=== PATIENT | female | born 1970 | race African-American/Black ===

== ENCOUNTER 2020-04-29 05:58 | Inpatient (IN) | payer OTHER ==
[2020-04-29] MEDS ORDERED: Dextrose 50% Abboject 50 ML SYRINGE ONE ×2 (06:04→06:35)
[2020-04-29] MEDS ORDERED: Vancomycin 1 GM/200 ML BAG ONE (07:21)
[2020-04-29 07:53] LABS: Anion Gap 16 mmol/L (10-20); BUN (Urea Nitrogen) 15 mg/dL (7.0-18.7); Calc. Creatinine Clearance 0 mL/min (70-130); Calcium 6.4 mg/dL (7.8-10.44); Carbon Dioxide 18 mmol/L (22-29); Chloride 107 mmol/L (98-107); Estimated GFR-MDRD 56; Potassium 3.2 mmol/L (3.5-5.1); Sodium 138 mmol/L (136-145)
[2020-04-29] MEDS ORDERED: Ondansetron ODT 4 MG TAB PO PRN (08:01)
[2020-04-29] MEDS ORDERED: HumaLOG 300 UNITS/3 ML VIAL SC PRN (08:04)
[2020-04-29] MEDS ORDERED: Dextrose 5% in Water 1,000 ML IV PRN (08:04)
[2020-04-29] MEDS ORDERED: Dextrose 50% Abboject 50 ML SYRINGE SLOW IVP PRN (08:04)
[2020-04-29] MEDS ORDERED: Lactated Ringer's 1,000 ML IV SCH ×2 (08:15→12:00)
[2020-04-29] MEDS ORDERED: Dextrose 5%-Lactated Ringers 1,000 ML IV SCH (08:15)
[2020-04-29] MEDS ORDERED: Norepinephrine 8 MG/0.9% NS 0 ML ONE (08:18)
[2020-04-29 08:25] LABS: Anion Gap 15 mmol/L (10-20); BUN (Urea Nitrogen) 15 mg/dL (7.0-18.7); Calc. Creatinine Clearance 0 mL/min (70-130); Calcium 6.4 mg/dL (7.8-10.44); Carbon Dioxide 19 mmol/L (22-29); Chloride 107 mmol/L (98-107); Estimated GFR-MDRD 57; Potassium 3.2 mmol/L (3.5-5.1); Sodium 138 mmol/L (136-145)
[2020-04-29 08:27] LABS: Glucose 641 mg/dL (70-105)
[2020-04-29 08:39] LABS: Glucose 638 mg/dL (70-105)
--- NOTE | 2020-04-29 10:48 | PDOC.FPRHP ---
- History of Present Illness Chief Complaint: G-tube malfunction History of Present Illness: 49yo F with PMH of DM2, PVD, Hypothyroidism, HTN, Gout and previous admissions at [facility] for osteomyelitis and gangrene s/p b/l BKFrancesco presented to [facility] for concern for PEG tube malfunction but also reported change from baseline orientation for 3 days. I called boyfriend to gather information from him as patient is unable to provide hx d/t mental status. Kitty Vazquez, boyfriend, reports hospitalized in [facility] for wound infections but is unsure what treatment was done or any other contributing information. He reports they have been followed up with outpatient wound care at first 3x/week and now weekly although his last reported appt was "last month." He reports she has been eating since discharge despite PEG tube placement and was told as long as she ate by mouth that nutritional support by PEG was not needed, but since Monday has not been taking anything PO. He reports at baseline is able to eat and drink on her own and easily holds conversation, has been bedridden for months. Our interview was cut short d/t dropped call and he did not answer on 2nd and 3rd attempt. ED Course: In their ED, labs were notable for initial POC glucose of <10, WBC of 12, Ammonia of 161, Cr of 1.36, INR of 1.9, and albumin of 1.8. She had several imaging studies notable for negative CT of the head, CT chest notable for peribronchial groundglass infeltrates in the LLL, CT abdominal with multiple uclerative soft tissue wounds including b/l breasts, R lateral pelvis, and posterior sacrum. There was notable sucutaneous and gas present at the wound sites without abscess. She was given Cefepime 2g, D50W amp x2, Glucagon, 1L of NS, and 20g Lactulose. Her BS improved to 218. - Allergies/Adverse Reactions Allergies Allergy/AdvReac Type Severity Reaction Status Date / Time penicillin G Allergy Verified 04/29/20 08:42 - History PMHx: OA HTN Hypothyroidism Gout DM Anemia PVD Hypokalemia PSHx: L Toe amputation R and L BKA FHx: unknown Social: unknown - Review of Systems ROS unobtainable: due to mental status - Vital signs BP: 147/80 HR: 144 RR: 18 Pox: 97% on RA Wt: 50kg - Physical Exam -Constitutional: lethargic, moaning in responsiveness HEENT: normocephalic and atraumatic, EOMI, no scleral icterus -HEENT: dry, cracked, MM Neck: supple, no LAD Heart: normal S1/S2, no murmurs/rubs/gallops (tachycardic), pulses present (b/l UE), no edema Lungs: CTAB, no respiratory distress, good air movement, no wheezing Abdomen: soft, bowel sounds present -Musculoskeletal: contractures noted in b/l UE -Neurological: GCS 10, E-4,V-2, M-4 -Skin: large sacral decubitus down to the sacrum with fleshy pink tissue and no drainage, notable similar decubitus on b/l breast where contractured arms rest, and along R hip. No crepitus of surrounding skin, tenderness to palpation. Heme/Lymphatic: no unusual bruising or bleeding, no petechia -Psychiatric: Non-verbal, only moaning FMR H&P: Results - Labs Result Diagrams: 04/29/20 10:20 Lab results: Sodium 138 mmol/L (136-145) 04/29/20 08:00 Potassium 3.2 mmol/L (3.5-5.1) L 04/29/20 08:00 Chloride 107 mmol/L (98-107) 04/29/20 08:00 Carbon Dioxide 19 mmol/L (22-29) L 04/29/20 08:00 BUN 15 mg/dL (7.0-18.7) 04/29/20 08:00 Creatinine 1.22 mg/dL (0.6-1.1) H 04/29/20 08:00 Glucose 638 mg/dL (70-105) H* 04/29/20 08:00 Lactic Acid 5.6 mmol/L (0.5-2.2) H* 04/29/20 07:13 Calcium 6.4 mg/dL (7.8-10.44) L 04/29/20 08:00 FMR H&P: A/P - Problem List (1) Sepsis Current Visit: Yes Status: Acute Code(s): A41.9 - SEPSIS, UNSPECIFIED ORGANISM (2) PNA (pneumonia) Current Visit: Yes Status: Acute Code(s): J18.9 - PNEUMONIA, UNSPECIFIED ORGANISM (3) UTI (urinary tract infection) Current Visit: Yes Status: Acute (4) Increased ammonia level Current Visit: Yes Status: Acute Code(s): R79.89 - OTHER SPECIFIED ABNORMAL FINDINGS OF BLOOD CHEMISTRY (5) HTN (hypertension) Current Visit: Yes Status: Acute Code(s): I10 - ESSENTIAL (PRIMARY) HYPERTENSION (6) Hypothyroidism Current Visit: Yes Status: Acute Code(s): E03.9 - HYPOTHYROIDISM, UNSPECIFIED (7) Peripheral vascular disease Current Visit: Yes Status: Acute Code(s): I73.9 - PERIPHERAL VASCULAR DISEASE, UNSPECIFIED (8) LORENA (acute kidney injury) Current Visit: Yes Status: Acute Code(s): N17.9 - ACUTE KIDNEY FAILURE, UNSPECIFIED (9) Diabetes mellitus Current Visit: Yes Status: Acute Code(s): E11.9 - TYPE 2 DIABETES MELLITUS WITHOUT COMPLICATIONS (10) Decubitus ulcer Current Visit: Yes Status: Acute Code(s): L89.90 - PRESSURE ULCER OF UNSPECIFIED SITE, UNSPECIFIED STAGE (11) Protein-calorie malnutrition, severe Current Visit: Yes Status: Acute Code(s): E43 - UNSPECIFIED SEVERE PROTEIN- CALORIE MALNUTRITION (12) Normocytic anemia Current Visit: Yes Status: Acute Code(s): D64.9 - ANEMIA, UNSPECIFIED - Plan Acute Metabolic Encephalopathy 2/2 Sepsis vs Elevated Ammonia vs Hypoglycemia: SEPSIS: -tachycardic, hypotensive, elevated WBC to 12, with elevated LA of 5 -s/p Cefepime and Vanc, will continue Vanc, add Zosyn and Clindamycin -sources of infection could be LLL PNA as reported by CT scan, UTI, or decubitus ulcers -concern for gas on CT scan at wound site, not on exam, discussed with General Surgery and recommended wound care consult first -s/p 1L in ED, repeat IVF LR bolus and reassess. Place in IMCU. -Procal <0.02 -COVID test pending -LA 5, repeat pending -blood and urine cx obtained at outside facility -CT scan without any evidence for abscess or tracking wounds or bony erosion at this time, ED initiated APS report d/t severity of wounds ELEVATED AMMONIA: -ammonia level 161, decreased to 60. Hx of Cirrhosis, alcohol abuse, or Hepatitis not gathered from family. -will get RUQ US and Hepatitis studies. UDS pending -Lactulose QID HYPOGLYCEMIA: -labile BS, q2h accuchecks -currently D5 NS running, last BS 600, stop D5 and trend. LORENA vs CKD: -likely prerenal LORENA based off physical exam and severe dehydration -trend and renally dose meds Severe Protein Calorie Malnutrition: -unsure of reason for PEG tube, records from prior hospital stay requested -dietitian teacher consulted -Prealbumin pending Multiple Decubitus Ulcers: -see #1 Normocytic Anemia: -Fe studies, B12, and folate pending -repeat CBC in AM PVD s/p b/l BKA: -wound care for R stump -dry gangrene of LUE 3rd digit Hypothyroidism: -TSH wnl at outside facility HTN: -hold home antihypertensives with hypotension DM2: -SSI and hypoglycemia protocol DVT PPx: Lovenox Code status: Full, unable to speak with medical power of managing attorney GI PPx: Protonix PCP: Dr. Alice Jaeger at [facility] F[facility] H&P: Upper Level - Plan Date/Time: 04/29/20 1042 I, [], have evaluated this patient and agree with findings/plan as outlined by kinesiology internship resident. Pertinent changes/additions are listed here. Addendum - Attending - Attending Attestation Date/Time: 04/29/20 2253 I personally evaluated the patient and discussed the management with Dr. Deluna. I agree with the History, Examination, Assessment and Plan documented above with any addition or exceptions noted below. see my dictated H&P doc # [id number].
[2020-04-29 11:06] VITALS: BMI 21.5
[2020-04-29 11:06] LABS: Iron 42 ug/dL (50-170)
[2020-04-29 11:09] LABS: Lactic Acid 12.4 mmol/L (0.5-2.2)
[2020-04-29 11:22] LABS: Glucose 142 mg/dL (70-105)
[2020-04-29] MEDS: Enoxaparin Sodium 40 MG/0.4 ML SYRINGE SC SCH (11:26)
[2020-04-29] MEDS: Clindamycin/D5W 600 MG in Premix Bag 1 BAG IVPB SCH ×2 (11:30→16:40)
[2020-04-29 12:00] LABS: Hep B Surf AB Non-Reactive (NonReactive); Hep B Surf Ag Non-Reactive S/CO (NonReactive); Hep C IgG Ab Non-Reactive (NonReactive); Hepatitis B Core IgM Abs Non-Reactive (NonReactive)
[2020-04-29 12:03] LABS: Ferritin 2557.79 ng/mL (10-291)
[2020-04-29 12:04] LABS: Hep C Index 0.29 S/CO (0-0.79)
[2020-04-29 12:05] LABS: HBCM Index 0.08 S/CO (0-0.79)
[2020-04-29 12:11] LABS: HBSAg Index 0.25 S/CO (0-0.99)
[2020-04-29 12:12] LABS: HBSAB Concentration 0.45 mIU/mL
[2020-04-29 12:23] LABS: Vitamin B12 Greater than 2000 pg/mL (211-911)
[2020-04-29] MEDS ORDERED: Sodium Chloride 0.9% 1,000 ML IV SCH (12:30)
[2020-04-29] MEDS: Lactated Ringer's 1,000 ML IV SCH ×2 (13:06→21:13)
[2020-04-29] MEDS: Piperacillin/Tazobactam 3.375 GM in Sodium Chloride 0.9% 100 ML IVPB SCH ×3 (13:15→23:25)
[2020-04-29] MEDS: Norepinephrine 8 MG/0.9% NS 250 ML IVPB SCH ×2 (14:39→22:50)
[2020-04-29 16:55] LABS: Lactic Acid 12.9 mmol/L (0.5-2.2)
[2020-04-29] MEDS: Hydrocortisone Sod Succ/PF 100 mg/2 ml Vial IVP SCH ×2 (17:27→23:27)
[2020-04-29 17:29] LABS: Hemoglobin 7.3 g/dL (12.0-16.0); Mean Corpuscular HGB CONC 31.5 g/dL (32.0-36.0); Mean Corpuscular Volume 92.3 fL (78.0-98.0); Mean Platelet Volume 8.1 fL (7.4-10.4); Platelet Count 161 thou/uL (130-400); RBC Distribution Width 16.5 % (11.5-14.5); Red Blood Cell (RBC) Count 2.52 mill/uL (4.20-5.40)
[2020-04-29 17:39] LABS: ALT (SGPT) 14 U/L (8-55); AST (SGOT) 26 U/L (5-34); Alkaline Phosphatase 284 U/L (40-110); Anion Gap 23 mmol/L (10-20); BUN (Urea Nitrogen) 11 mg/dL (7.0-18.7); Bilirubin, Total 1.1 mg/dL (0.2-1.2); Calc. Creatinine Clearance 72 mL/min (70-130); Calcium 7.2 mg/dL (7.8-10.44); Carbon Dioxide 15 mmol/L (22-29); Chloride 109 mmol/L (98-107); Estimated GFR-MDRD Greater than 90; Globulin 4.2 g/dL (2.4-3.5); Glucose 89 mg/dL (70-105); Protein, Total 6.2 g/dL (6.0-8.3); Sodium 144 mmol/L (136-145)
[2020-04-29 17:59] LABS: Anisocytosis SLIGHT = 6-15 cells (100X) (0-5/hpf); Band 8 % (5-11); Lymphocytes 13 % (21-51); MDiff Complete? YES; Monocytes 3 % (0-10); Neutrophil 76 % (42-75); Platelet Clumps SLIGHT; Platelet Morphology Comment Appears Adequate; Polychromasia SLIGHT = 2-3 cells (100X) (0-2/hpf)
[2020-04-29 18:20] LABS: Hemoglobin A1c 4.3 % (4.0-6.0)
[2020-04-29 18:32] LABS: SARS-CoV-2 MS2 Positive; SARS-CoV-2 N Gene Negative; SARS-CoV-2 S Gene Negative; SARS-CoV-2 orf1ab Negative
[2020-04-29 18:59] LABS: Iron Binding Capacity, Total 36 mcg/dL (265-497)
[2020-04-29 19:19] LABS: Lactic Acid 10.3 mmol/L (0.5-2.2)
[2020-04-29] MEDS ORDERED: Magnesium 2 GM/50 ML 2 GM in Premix Bag 1 BAG IVPB SCH (19:45)
[2020-04-29] MEDS ORDERED: Potassium Chloride 20 MEQ TAB PO SCH (19:45)
--- NOTE | 2020-04-29 21:19 | ULT ---
ULTRASOUND GALLBLADDER RIGHT UPPER QUADRANT: 04/29/20 HISTORY: Concern for cirrhosis. COMPARISON: Reference is made to a CT same day outside facility. FINDINGS: real time webber scale and color evaluation right upper quadrant of the abdomen was performed. The visualized portion of the aorta, IVC and pancreas are unremarkable. The portal vein is patent wit h antegrade flow. Extensive cholelithiasis. Minimal pericholecystic fluid. Diffuse increased hepatic echotexture. The right kidney measures 11.1 x 4.8 x 4.5 cm without mass, hydronephrosis or abnormal calcifications . IMPRESSION: 1. Hepatic steatosis. 2. Cholelithiasis without definite evidence of acute cholecystitis. 3. No evidence for right sided obstructive uropathy. POS: HOME
--- NOTE | 2020-04-29 22:07 | CON ---
DATE OF CONSULTATION: HISTORY OF PRESENT ILLNESS: Josefa Perry is a 49-year-old cachectic female, who was apparently transferred from [facility] to [facility] in shock. History is obtained from reviewing extensive medical records, who states that she has had some mental status change as per her boyfriend, who took her to [facility] with sepsis and apparently a arora virus test was done which was negative. Another test was ordered at [facility]. She has a long history of multiple medical problems which are well outlined includes multiple decubitus ulcers, hypertension, chronic pain, encephalopathy, wound in breast, multiple ulcers, mild azotemia, gallstones, diabetes, gout, hypertension, peripheral vascular disease, thyroid disease, previous , chronic PICC line apparently for five years, left BK amputation, feeding tube in place. ALLERGIES: APPARENTLY PENICILLIN. MEDICATIONS: Her list of medicine was outlined from records transferred from the [facility] area apparently, which includes: 1. Gabapentin. 2. Plavix 75. 3. Synthroid 75. 4. Magnesium. 5. Iron. 6. Ascorbic acid. 7. Lipitor 80. 8. Apparently, Keflex. 9. She received . 10. Maxipime. 11. Dextrose. 12. Tylenol. Test for arora virus negative. CT head negative. CT chest and abdomen shows gallstones, questionable pneumonia. On examination, she is cachectic. Extensive decubitus is well outlined by the nurse's note. Multiple sores on the breasts nonverbal communication. PEG tube in place. PHYSICAL EXAMINATION: VITAL SIGNS: Hypotensive blood pressure 94/61, saturations 100% on room air, respiratory rate 15, temperature on arrival was 97. CHEST: No wheezing or crackles. CARDIAC: Normal S1, S2. No gallops. ABDOMEN: Soft. NEUROLOGIC: Clear and unresponsive. LABORATORY DATA: Creatinine is 1.25, glucose 302, lactic acid 12.5. Hepatitis profile was obtained, so far negative. HB antibody index was 0.5. Sepsis syndrome secondary to extensive decubitus ulcers as well outlined. Shock, gallstones, pneumonia, encephalopathy, hypertension, hypothyroidism, cachexia. As soon as family is aware, we will try to get additional information. I agree with present antibiotic coverage, vancomycin, Zosyn, and clindamycin. Should cover pretty much gram negatives, gram positives, and anaerobes. I have added stress dose of steroids in additional volume. She is probably prerenal. 45-minute critical care time. Job ID: [id number]
[2020-04-29 22:24] LABS: Lactic Acid 5.5 mmol/L (0.5-2.2)
[2020-04-29 23:02] LABS: Cocaine Metabolite Screen Not Detected (NotDetected); Medtox Reader # READER 4; Methamphetamine Not Detected (NotDetected); Phencyclidine (PCP) Not Detected (NotDetected); THC/Cannabinoid Screen Not Detected (NotDetected)
[2020-04-29 23:03] LABS: Amphetamine Not Detected (NotDetected); Barbiturates Screen Not Detected (NotDetected); Benzodiazepine Screen Not Detected (NotDetected); Medtox Control Line Valid? VALID (VALID); Methadone Not Detected (NotDetected); Opiate Screen Detected (NotDetected); Oxycodone Screen Not Detected (NotDetected); Tricyclic Screen Not Detected (NotDetected)
[2020-04-30] MEDS: Clindamycin/D5W 600 MG in Premix Bag 1 BAG IVPB SCH ×4 (01:11→23:52)
[2020-04-30 04:48] LABS: Anion Gap 13 mmol/L (10-20); BUN (Urea Nitrogen) 10 mg/dL (7.0-18.7); Calc. Creatinine Clearance 79 mL/min (70-130); Calcium 7.3 mg/dL (7.8-10.44); Carbon Dioxide 27 mmol/L (22-29); Chloride 107 mmol/L (98-107); Estimated GFR-MDRD Greater than 90; Glucose 72 mg/dL (70-105); Magnesium 2.3 mg/dL (1.6-2.6); Sodium 144 mmol/L (136-145)
[2020-04-30 04:49] LABS: Phosphorus 2.4 mg/dL (2.3-4.7)
[2020-04-30 04:53] LABS: Glucose 70 mg/dL (70-105); Potassium 2.7 mmol/L (3.5-5.1)
[2020-04-30] MEDS: Lactated Ringer's 1,000 ML IV SCH ×3 (05:07→20:49)
[2020-04-30] MEDS: Hydrocortisone Sod Succ/PF 100 mg/2 ml Vial IVP SCH ×4 (05:16→23:08)
[2020-04-30] MEDS: Piperacillin/Tazobactam 3.375 GM in Sodium Chloride 0.9% 100 ML IVPB SCH ×4 (05:17→23:08)
[2020-04-30 06:06] LABS: Band 17 % (5-11); Hemoglobin 7.3 g/dL (12.0-16.0); Lymphocytes 17 % (21-51); MDiff Complete? YES; Mean Corpuscular Hemoglobin 29.4 pg (27.0-31.0); Mean Platelet Volume 6.3 fL (7.4-10.4); Monocytes 2 % (0-10); Neutrophil 64 % (42-75); Platelet Count 328 thou/uL (130-400); Platelet Morphology Comment Appears Adequate; RBC Distribution Width 16.3 % (11.5-14.5); Red Blood Cell (RBC) Count 2.48 mill/uL (4.20-5.40); White Blood Cell (WBC) Count 17.4 thou/uL (4.8-10.8)
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
--- NOTE | 2020-04-30 07:28 | PDOC.FM ---
- Subjective Subjective: NAEO. Patient non verbal, responds to some vocal commands - Objective MAR Reviewed: Yes Vital Signs & Weight: Vital Signs (12 hours) Temp Pulse Ox 04/30/20 04:00 97.6 F 04/30/20 00:00 97.6 F 04/29/20 20:02 100 04/29/20 20:00 97.5 F L 96 Weight Weight 50 kg Most Recent Monitor Data Heart Rate from ECG 130 NIBP 93/46 NIBP BP-Mean 61 Respiration from ECG 17 SpO2 96 I&O: 04/29/20 04/30/20 05/01/20 06:59 06:59 06:59 Intake Total 5642 Output Total 2590 Balance 3052 Result Diagrams: 04/30/20 05:23 04/30/20 11:34 Phys Exam - Physical Examination Constitutional: NAD malnourished appearing HEENT: PERRLA Respiratory: no wheezing, clear to auscultation bilateral tachycardic Gastrointestinal: soft, non-tender peg tube in place, b/l BKA, wounds wrapped Musculoskeletal: no edema withdraws to pain, spontaneously opens eyes, no following to verbal Dx/Plan (1) Metabolic encephalopathy Code(s): G93.41 - METABOLIC ENCEPHALOPATHY Status: Acute (2) LORENA (acute kidney injury) Code(s): N17.9 - ACUTE KIDNEY FAILURE, UNSPECIFIED Status: Acute (3) Diabetes mellitus Code(s): E11.9 - TYPE 2 DIABETES MELLITUS WITHOUT COMPLICATIONS Status: Acute (4) HTN (hypertension) Code(s): I10 - ESSENTIAL (PRIMARY) HYPERTENSION Status: Acute (5) Increased ammonia level Code(s): R79.89 - OTHER SPECIFIED ABNORMAL FINDINGS OF BLOOD CHEMISTRY Status : Acute (6) Sepsis Code(s): A41.9 - SEPSIS, UNSPECIFIED ORGANISM Status: Acute (7) UTI (urinary tract infection) Status: Acute - Plan Plan: Acute Metabolic Encephalopathy 2/2 Sepsis vs Elevated Ammonia vs Hypoglycemia SEPSIS: Sources of infection - LLL PNA as reported by CT scan, UTI, or decubitus ulcers Concern for gas on CT scan at wound site, not on exam, discussed with General Surgery and recommended wound care consult first CT scan without any evidence for abscess or tracking wounds or bony erosion at this time, ED initiated APS report d/t severity of wounds Continue Vanc, add Zosyn and Clindamycin pending blood, urine & wound cx. Will need to call [facility] for results Obtain ESR/CRP to trend ELEVATED AMMONIA: Ammonia level 161 > 61 > 61 with one BM. Could have been hemoconcentrated Hx of Cirrhosis, alcohol abuse, or Hepatitis not gathered from family, will call today RUQ US showing hepatic steatosis, LFTs WNL, hep panel negative Hold lactulose HYPOGLYCEMIA: Labile, stablized now 71-88 Hold any glucose lowering agents for now Trend [id number] Severe sepsis requiring vasopressor support Multiple potential cause for primary wound Continue abx coverage pending Cx Requiring levophed, wean as tolerated Hypokalemia Replace 40mEq IV, recheck at noon Tachycardia 130s, appears sinus tach 2/2 anemia vs. sepsis vs. volume depletion vs. neurogenic response to low BPs May need more time with abx and fluid resuscitation If unimproved later today can consider PRBC Severe Protein Calorie Malnutrition Unsure of reason for PEG tube, records from prior hospital stay requested [employer] consulted-resume PEG tube feeds Multiple Decubitus Ulcers See above Normocytic Anemia Fe studies, B12, and folate pending Hb stable at 7.3, trend PVD s/p b/l BKA Wound care for R stump Dry gangrene of LUE 3rd digit Hx of Hypothyroidism TSH wnl at outside facility HTN hold home antihypertensives with hypotension DM2 SSI and hypoglycemia protocol DVT PPx: Lovenox Code status: Full, unable to speak with medical power of deputy prosecuting attorney GI PPx: Protonix Social: Will contact family today to figure out baseline status. APS initiated. CM on board. PCP: Dr. Alice Jaeger at [facility] Addendum - Attending - Attending Attestation Date/Time: 04/30/20 5153 I personally evaluated the patient and discussed the management with Dr. Perry. I agree with the History, Examination, Assessment and Plan documented above with any addition or exceptions noted below. Tx 1u PRBCs to promote wound healing. Will consider adding albumin if BP remains low or she shows signs of third spacing. continue pressor support. Patient still non-verbal during my exam but per nursing and resident, will speak when moving or performing wound care. APS consulted. Dr. Perry spoke with family/SO today but still unable to provide much useful information. Awaiting records from [facility]. Will add toradol for pain to see if this is causing her tachycardia.
[2020-04-30] MEDS: Vancomycin HCl 750 MG in Sodium Chloride 0.9% 250 ML 250 ML IVPB SCH (08:06)
[2020-04-30] MEDS: Enoxaparin Sodium 40 MG/0.4 ML SYRINGE SC SCH (08:07)
[2020-04-30] MEDS: Pantoprazole 40 MG VIAL IVP SCH (08:08)
[2020-04-30] MEDS ORDERED: Albumin 5% 500 ML ONE (08:51)
--- NOTE | 2020-04-30 09:13 | PRG ---
DATE OF SERVICE: 04/30/2020 SUBJECTIVE: Josefa Perry is a 49-year-old female, who appears to be neurologically a bit more responsive, though there is no verbal communication. OBJECTIVE: VITAL SIGNS: Temperature 97, blood pressure is 98/60, and pulse 70. GENERAL: She appears to be in no distress. Cultures are all negative. CHEST: No wheezing. No crackles. CARDIAC: Normal S1 and S2. No gallops. ABDOMEN: Soft. LABORATORY DATA: She has 17 bands, H and H are low at 7 and 21, and platelet count 328. Renal function has resolved, much improved. X-ray shows a questionable left-sided infiltrate. ASSESSMENT AND PLAN: Sepsis syndrome, decubitus, questionable left-sided infiltrate, and relative adrenal insufficiency. She remains hypotensive, we will do another fluid challenge. Continue steroids for relative adrenal insufficiency. Continue broad-spectrum antibiotics. While blood pressure stabilize, she can probably move out of the ICU. We will follow. Job ID: [id number]
[2020-04-30] MEDS ORDERED: Potassium Chloride 40 MEQ in Sodium Chloride 0.9% 250 ML 250 ML IVPB PRN (09:20)
[2020-04-30] MEDS ORDERED: CCU ELECTROLYTE REPLACEMENT PROTOCOL FS PRN (09:20)
[2020-04-30] MEDS ORDERED: Potassium Phosphate 15 MMOL in Sodium Chloride 0.9% 250 ML 250 ML IV PRN (09:20)
[2020-04-30] MEDS ORDERED: Magnesium 2 GM/50 ML 2 GM in Premix Bag 1 BAG IVPB PRN (09:20)
[2020-04-30] MEDS ORDERED: Potassium Chloride 20 MEQ TAB PO PRN (09:20)
[2020-04-30] MEDS ORDERED: Potassium Phosphate 12 MMOL in Sodium Chloride 0.9% 250 ML 250 ML IV PRN (09:20)
[2020-04-30] MEDS ORDERED: Potassium Phosphate 9 MMOL in Sodium Chloride 0.9% 100 ML IVPB PRN (09:20)
[2020-04-30] MEDS ORDERED: PHOS-NAK 1 PKT PACK PO PRN ×2 (09:20)
[2020-04-30] MEDS ORDERED: Potassium Chloride 40 MEQ in Premix Bag 1 BAG IVPB PRN (09:20)
[2020-04-30] MEDS ORDERED: Magnesium Oxide 400 MG TAB PO PRN ×2 (09:20)
--- NOTE | 2020-04-30 10:05 | RAD ---
PORTABLE CHEST: HISTORY: Pneumonia. COMPARISON: Correlation is made to outside chest CT of 04/29/2020. That exam revealed subtle ground-glass opacity in the posterior left lung field. FINDINGS/IMPRESSION: These subtle opacities are not apparent on this portable exam. Heart size is mildly prominent. No c onsolidation or acute process identified. POS: [facility]
[2020-04-30 12:12] LABS: Potassium 3.5 mmol/L (3.5-5.1)
[2020-04-30] MEDS ORDERED: Fleet Enema 133 ML BOT PR SCH (12:30)
[2020-04-30 12:33] LABS: Syphilis Antibody Nonreactive (Nonreactive); Syphilis Antibody Index 0.09 S/CO (<1.00 Non-Reactive)
[2020-04-30] MEDS ORDERED: Ketorolac Tromethamine 30 MG/ML VIAL IVP PRN (13:40)
[2020-04-30] MEDS: Metoclopramide HCl 10 MG/2 ML VIAL IVP SCH ×3 (13:46→23:53)
[2020-04-30 16:37] LABS: Hematocrit 26.3 % (34.0-46.6); RBC Folate Test Component 1430 ng/mL (>498)
[2020-04-30] MEDS: Norepinephrine 8 MG/0.9% NS 250 ML IVPB SCH (16:40)
[2020-04-30 21:21] LABS: Hemoglobin 8.7 g/dL (12.0-16.0); Platelet Count 299 thou/uL (130-400)
[2020-05-01 01:23] LABS: Glucose 147 mg/dL (70-105)
[2020-05-01] MEDS: Lactated Ringer's 1,000 ML IV SCH ×3 (04:33→18:12)
[2020-05-01 04:52] LABS: Anion Gap 19 mmol/L (10-20); BUN (Urea Nitrogen) 8 mg/dL (7.0-18.7); Calc. Creatinine Clearance 73 mL/min (70-130); Calcium 6.9 mg/dL (7.8-10.44); Carbon Dioxide 25 mmol/L (22-29); Chloride 104 mmol/L (98-107); Estimated GFR-MDRD Greater than 90; Glucose 155 mg/dL (70-105); Sodium 145 mmol/L (136-145)
[2020-05-01 04:56] LABS: Potassium 2.9 mmol/L (3.5-5.1)
[2020-05-01] MEDS: Hydrocortisone Sod Succ/PF 100 mg/2 ml Vial IVP SCH ×4 (05:19→23:03)
[2020-05-01] MEDS: Piperacillin/Tazobactam 3.375 GM in Sodium Chloride 0.9% 100 ML IVPB SCH ×4 (05:20→23:06)
[2020-05-01] MEDS: Metoclopramide HCl 10 MG/2 ML VIAL IVP SCH ×2 (05:31→11:24)
[2020-05-01 05:37] LABS: Band 10 % (5-11); Hemoglobin 8.3 g/dL (12.0-16.0); Lymphocytes 16 % (21-51); MDiff Complete? YES; Mean Corpuscular HGB CONC 35.2 g/dL (32.0-36.0); Mean Corpuscular Hemoglobin 30.4 pg (27.0-31.0); Mean Corpuscular Volume 86.5 fL (78.0-98.0); Mean Platelet Volume 6.9 fL (7.4-10.4); Monocytes 5 % (0-10); Myelocyte 2 % (0-0); Neutrophil 67 % (42-75); Nucleated RBC 1 % (0); Platelet Count 238 thou/uL (130-400); RBC Distribution Width 15.5 % (11.5-14.5); Red Blood Cell (RBC) Count 2.74 mill/uL (4.20-5.40); White Blood Cell (WBC) Count 16.5 thou/uL (4.8-10.8)
[2020-05-01] MEDS ORDERED: Fluconazole In NaCl,Iso-Osm 800 MG in Premix Bag 1 BAG IVPB SCH (07:00)
[2020-05-01] MEDS ORDERED: Fluconazole In NaCl,Iso-Osm 800 MG in Admixture Fee 1 EACH IVPB SCH (07:15)
[2020-05-01 07:31] LABS: Vancomycin, Trough 19.2 ug/mL
--- NOTE | 2020-05-01 08:15 | PDOC.FM ---
- Subjective Subjective: Difficulty with getting BP readings Patient conscious but not responsive to verbal command Spontaneous movement of LLE and LUE with spontaneous eye movement - Objective Vital Signs & Weight: Vital Signs (12 hours) Temp Pulse Ox 05/01/20 07:22 100 05/01/20 07:00 97.9 F 05/01/20 04:00 97.6 F 05/01/20 00:00 98.5 F Weight Admit Weight 49.895 kg Weight 50 kg Most Recent Monitor Data Heart Rate from ECG 124 NIBP 134/92 NIBP BP-Mean 56 Respiration from ECG 15 SpO2 100 I&O: 04/30/20 05/01/20 05/02/20 06:59 06:59 06:59 Intake Total 5642 3720 Output Total 2590 3080 150 Balance 3052 640 -150 Result Diagrams: 05/01/20 04:00 05/01/20 11:05 Phys Exam - Physical Examination Constitutional: NAD Cardiovascular: no significant murmur tachycardic Gastrointestinal: soft, no distention PEG tube in place Musculoskeletal: no edema contracted upper extremities, rigid Dx/Plan (1) Metabolic encephalopathy Code(s): G93.41 - METABOLIC ENCEPHALOPATHY Status: Acute (2) LORENA (acute kidney injury) Code(s): N17.9 - ACUTE KIDNEY FAILURE, UNSPECIFIED Status: Acute (3) Diabetes mellitus Code(s): E11.9 - TYPE 2 DIABETES MELLITUS WITHOUT COMPLICATIONS Status: Acute (4) HTN (hypertension) Code(s): I10 - ESSENTIAL (PRIMARY) HYPERTENSION Status: Acute (5) Increased ammonia level Code(s): R79.89 - OTHER SPECIFIED ABNORMAL FINDINGS OF BLOOD CHEMISTRY Status : Acute (6) Sepsis Code(s): A41.9 - SEPSIS, UNSPECIFIED ORGANISM Status: Acute (7) UTI (urinary tract infection) Status: Acute - Plan Plan: Acute Metabolic Encephalopathy 2/2 Sepsis Unimproved. Likely 2/2 infectious process from decubitus ulcers vs. UTI vs. hospital delirum vs. severe malnutrition Check ABG, continue treatment for sepsis detailed below MRI at [facility] mentioned WNL, will need to review records Acute hypoxic respiratory failure Requiring 2L O2 Get ABG, could be contributing to unimproved mental status LLL PNA Ground glass opacity in LLL field Continue abx course WBC trending down Could be 2/2 aspiration, needs speech eval once mentation improved Severe sepsis 2/2 UTI vs. decubitus ulcers vs. candidemia Requiring levophed, more albumin today, continue steroids Difficulty with BP readings due severe vascular disease UCx: E.coli, continue zosyn, pending sensitivities BCx: (1/2) Yeast, started diflucan, pending finalization L Hip Wound Cx: Staph aureus & pseudomonas- continue vanc & zosyn Hypokalemia 2/2 malnutrition and GI losses Replaced 60mEq PO, recheck Schedule for daily PO replacement Hyperammonemia 84, restarted lactulose Imaging showing possible early cirrhosis Hep panel neg Continue lactulose with daily ammonia check Tachycardia Improved from 130s to 110s after PRBC and fluids Obtain EKG to confirm rhythm Could be related to infection No BB at this time due to low BPs Continuous monitoring Prolonged QTc ~600ms on EKG Check Mg Avoid QTc prolonging agents Severe Protein Calorie Malnutrition with PEG placement Placed at hospitalization at [facility] due to poor PO intake Biological Science Technician consulted-resume PEG tube feeds Multiple Decubitus Ulcers See above Normocytic Anemia Hb stable, monitor PVD s/p b/l BKA Wound care for R stump 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 Stable. ACHS. A1c 4.3% DVT PPx: Lovenox Code status: Full after discussed with daughter GI PPx: Protonix Social: Complicated social situation. Lives at home separate from boyfriend, Silverio Vazquez. Patient has 11 children, talked with daughter who states she is the only one involved in her mother's life and so will be MPOA though her mother wanted all of them to be MPOA. She doesn't have their contact information. Discussed poor prognosis with mother due to multiple hospitalizations and no improvement with several interventions. Desires full code. Will consult palliative to aid in this. Shanthi Rodriguez (daughter) [phone] Silverio Vazquez (boyfriend) [phone] PCP: Dr. Alice Jaeger at [facility] Addendum - Attending - Attending Attestation Date/Time: 05/01/20 5969 I personally evaluated the patient and discussed the management with Dr. Perry. I agree with the History, Examination, Assessment and Plan documented above with any addition or exceptions noted below. Ms Perry appears to be decompensating today. Having difficulty obtaining BP. Patient has no clear mPOA and family in disagreement for care. Replacing electrolytes. Supportive care. Ethics committee consult placed. stopped reglan 2 /2 QTc prolongation. Prognosis guarded.
[2020-05-01] MEDS ORDERED: Albumin 25% 25 GM/100 ML BOT IVPB SCH (09:00)
[2020-05-01 09:15] LABS: Lactic Acid 4.7 mmol/L (0.5-2.2)
[2020-05-01 09:22] LABS: Glucose 154 mg/dL (70-105)
--- NOTE | 2020-05-01 09:24 | PRG ---
DATE OF SERVICE: 05/01/2020 SUBJECTIVE: A 49-year-old female, remains on Levophed. OBJECTIVE: VITAL SIGNS: Pulse 105, blood pressure 100/60, sats 90%, respiratory 15. GENERAL: She is encephalopathic. CHEST: No wheezing or crackles. CARDIAC: Normal S1, S2. No gallops. ABDOMEN: Soft. LABORATORY DATA: White count 41809, H and H 8 and 23, platelet count is normal. Lytes are normal. So far cultures are negative. ASSESSMENT: Sepsis syndrome, extensive decubitus, hypertension, adrenal insufficiency. PLAN: Continue stress dose of steroids, several antibiotics, supportive care, PT. We will follow. Job ID: [id number]
[2020-05-01] MEDS: Ascorbic Acid 500 mg Chewable Tablet PER TUBE SCH (09:25)
[2020-05-01] MEDS: Enoxaparin Sodium 40 MG/0.4 ML SYRINGE SC SCH (09:25)
[2020-05-01] MEDS: Aspirin Chewable 81 MG TAB PO SCH (09:25)
[2020-05-01] MEDS: Pantoprazole 40 MG VIAL IVP SCH (09:25)
[2020-05-01 10:24] VITALS: BP 100/53
[2020-05-01] MEDS: Clindamycin/D5W 600 MG in Premix Bag 1 BAG IVPB SCH ×2 (10:32→18:30)
[2020-05-01] MEDS ORDERED: Piperacillin/Tazobactam 3.375 GM VIAL ONE (11:20)
[2020-05-01 11:27] LABS: Actual Bicarbonate (HCO3a) 17.2 mEq/L (22-28); Base Excess (BEa) -4.8 mEq/L (-2.0 to +3.0); Calcium, Ionized (arterial) 0.91 mmol/L (1.12-1.30); Carboxyhemoglobin (COHb) 0.8 gm% (0.0-3.0); Hemoglobin (Hb) 7.5 g/dL (12.0-16.0); O2 Tension (PaO2), arterial 119.6 mmHg (80.0-100.0); Potassium - ABG Lab 4.31 mmol/L (3.70-5.30); pH, Arterial 7.52 (7.35-7.45)
[2020-05-01 11:52] LABS: Potassium 4.5 mmol/L (3.5-5.1)
[2020-05-01] MEDS: Vancomycin HCl 750 MG in Sodium Chloride 0.9% 250 ML 250 ML IVPB SCH ×2 (11:53→11:54)
[2020-05-01 12:12] LABS: Magnesium 1.6 mg/dL (1.6-2.6); Phosphorus 2.5 mg/dL (2.3-4.7)
[2020-05-01 14:48] LABS: CO2 Tension 21.6 mmHg (35.0-45.0)
[2020-05-01 14:49] LABS: Puncture Site L.B.
--- NOTE | 2020-05-01 15:03 | PQF ---
DATE: 05-01-20 ATTN: DR. PIOTR BRITO Please exercise your independent, professional judgment in responding to the clarification form. Clinical indicators are provided on the bottom of this form for your review Please check appropriate box(s): [ ] Hypovolemic Shock [ x ] Septic Shock [ ] Shock (other ) [ ] Other diagnosis [ ] Unable to determine In addition, please specify: Present on Admission (POA): [ x ] Yes [ ] No [ ] Unable to determine For continuity of documentation, please document condition throughout progress notes and discharge summary. Thank You. CLINICAL INDICATORS - SIGNS / SYMPTOMS / LABS / RESULTS AND LOCATION IN MR: H&P 04-29-20: SEVERE SEPSIS SECONDARY TO CHRONIC WOUND INFECTION. THE PATIENT HAD FEMORAL CENTRAL VENOUS CATHETER PLACED AT [facility], ACUTE METABOLIC ENCEPHALOPATHY LIKELY TO SEVERE SEPSIS AND PROFOUND HYPOGLYCEMIA. CONSULT NOTE DR. MOSCOSO 04-29-20: SEPSIS SYNDROME SECONDARY TO EXTENSIVE DECUBITUS ULCERS WELL OUTLINED. SHOCK, GALLSTONE, PNEUMONIA, ENCEPHALOPATHY, HTN, HYPOTHYROIDISM, CACHEXIA. ER NOTES 04-29-20: BP: 98/56, PULSE: 137, 131, 134 ER DX: SEVERE SEPSIS, HEPATIC ENCEPHALOPATHY, NUMEROUS CHRONIC NONHEALING WOUNDS, SEVERE HYPOGLYCEMIA, UTI PN DR. BRITO 04-30-20: DIFFICULTY WITH GETTING BP READINGS, PATIENT CONSCIOUS BUT NOT RESPONSIVE TO VERBAL COMMAND, ACUTE METABOLIC ENCEPHALOPATHY 2/2 SEPSIS, ACUTE HYPOXIC RESPIRATORY FAILURE, LLL PNA, SEVERE SEPSIS 2/2 UTI VS DECUB ULCERS VS CANDIDEMIA, HYPOKALEMIA, TACHYCARDIA, SEVERE PROTEIN MALNUTRITION, PN DR. BRITO 04-30-20: SEVERE SEPSIS REQUIRING VASOPRESSOR SUPPORT RISK FACTORS / RESULTS AND LOCATION IN MR: PN DR. BRITO 04-30-20: DIFFICULTY WITH GETTING BP READINGS, PATIENT CONSCIOUS BUT NOT RESPONSIVE TO VERBAL COMMAND, ACUTE METABOLIC ENCEPHALOPATHY 2/2 SEPSIS, ACUTE HYPOXIC RESPIRATORY FAILURE, LLL PNA, SEVERE SEPSIS 2/2 UTI VS DECUB ULCERS VS CANDIDEMIA, HYPOKALEMIA, TACHYCARDIA, SEVERE PROTEIN MALNUTRITION, TREATMENTS / RESULTS AND LOCATION IN MR: ICU PN DR. BRITO 04-30-20: SEVERE SEPSIS REQUIRING VASOPRESSOR SUPPORT, MULTIPLE POTENTIAL CAUSE FOR PRIMARY WOUND, CONTINUE ABX COVERAGE PENDING CX, REQUIRING LEVOPHED, WEAN TOLERATED (This form is maintained as a part of the permanent medical record) 2014 [employer], [employer]. All Rights Reserved SUNIL [email or web address]
[2020-05-01] MEDS ORDERED: Morphine 2 MG/ML SYRINGE SLOW IVP PRN (16:11)
--- NOTE | 2020-05-01 16:45 | PDOC.BPN ---
- Brief Progress Note Up until today, our team had only been able to contact 1 daughter, Shanthi Rodriguez, and common law , Kitty Vazquez, about Mrs Perry's condition. Today after evaluating the patient and determining she was decompensating quickly, we were able to speak with majority of her children. She is reported to have 9 adult children. After lengthy discussion and consult to the ethics committee, it was determined to be appropriate to place code status based off majority rule. 5 of the 9 adult children are in agreement with DNAR code status , as well as common law . We will comply with majority decision based off ethics committee input and leave her as DNAR code status. Of note, patient is agonal breathing and BP's are becoming steadily refractory to max dose levophed. Discussed this with children and they are aware patient is actively dying. As of now, there is no plan to withdraw IV pressure support.
[2020-05-01 17:09] LABS: Lactic Acid 18.4 mmol/L (0.5-2.2)
--- NOTE | 2020-05-01 17:28 | PQF ---
DATE: 05-01-20 ATTN: DR. ALVARADO BRITO Please exercise your independent, professional judgment in responding to the clarification form. Clinical indicators are provided on the bottom of this form for your review Please check appropriate box(s): [ x ] E.Coli UTI [ ] Contaminated urine specimen without UTI [ ] Other diagnosis [ ] Unable to determine In addition, please specify: Present on Admission (POA): [ ] Yes [ x ] No [ ] Unable to determine For continuity of documentation, please document condition throughout progress notes and discharge summary. Thank You. CLINICAL INDICATORS - SIGNS / SYMPTOMS / LABS / RESULTS AND LOCATION IN MR: ER NOTES 04-29-20: URINE OBTAINED FROM HER CHRONIC EDUARDO WAS GROSSLY INFECTED. ER DX: SEVERE SEPSIS, HEPATIC ENCEPHALOPATHY, NUMEROUS CHRONIC NONHEALING WOUNDS, SEVERE HYPOGLYCEMIA, UTI. RISK FACTORS / RESULTS AND LOCATION IN MR: ER NOTES 04-29-20: URINE OBTAINED FROM HER CHRONIC EDUARDO WAS GROSSLY INFECTED. FROM NURSING FACILITY TREATMENT / RESULTS AND LOCATION IN MR: ER NOTES 04-29-20: VANCOMYCIN IV, NS IVF (This form is maintained as a part of the permanent medical record) 2014 [employer], [employer]. All Rights Reserved SUNIL [email or web address] [email or web address]
[2020-05-01] MEDS: Norepinephrine 8 MG/0.9% NS 250 ML IVPB SCH (18:13)
[2020-05-01] MEDS ORDERED: Dextrose 50% Abboject 50 ML SYRINGE ONE ×2 (20:54→20:57)
[2020-05-02] MEDS: Clindamycin/D5W 600 MG in Premix Bag 1 BAG IVPB SCH ×3 (00:28→16:19)
[2020-05-02] MEDS: Lactated Ringer's 1,000 ML IV SCH (03:03)
[2020-05-02] MEDS: Norepinephrine 8 MG/0.9% NS 250 ML IVPB SCH ×2 (03:04→20:30)
[2020-05-02 04:32] LABS: Anion Gap 38 mmol/L (10-20); BUN (Urea Nitrogen) 11 mg/dL (7.0-18.7); Calc. Creatinine Clearance 56 mL/min (70-130); Calcium 7.3 mg/dL (7.8-10.44); Chloride 109 mmol/L (98-107); Estimated GFR-MDRD 75; Glucose 95 mg/dL (70-105); Potassium 4.5 mmol/L (3.5-5.1); Sodium 151 mmol/L (136-145)
[2020-05-02 04:38] LABS: Carbon Dioxide 9 mmol/L (22-29)
[2020-05-02 05:03] LABS: Band 12 % (5-11); Burr Cells SLIGHT = 2-5 cells (100X) (0-1/hpf); Hemoglobin 7.4 g/dL (12.0-16.0); Lymphocytes 9 % (21-51); MDiff Complete? YES; Mean Corpuscular HGB CONC 30.6 g/dL (32.0-36.0); Mean Corpuscular Hemoglobin 28.4 pg (27.0-31.0); Mean Corpuscular Volume 92.9 fL (78.0-98.0); Mean Platelet Volume 7.6 fL (7.4-10.4); Monocytes 2 % (0-10); Myelocyte 2 % (0-0); Neutrophil 75 % (42-75); Nucleated RBC 1 % (0); Platelet Count 212 thou/uL (130-400); Platelet Morphology Comment Appears Adequate; Polychromasia SLIGHT = 2-3 cells (100X) (0-2/hpf); RBC Distribution Width 15.9 % (11.5-14.5); Red Blood Cell (RBC) Count 2.58 mill/uL (4.20-5.40)
[2020-05-02] MEDS: Levothyroxine Sodium 75 MCG TAB PO SCH (05:07)
[2020-05-02] MEDS: Hydrocortisone Sod Succ/PF 100 mg/2 ml Vial IVP SCH ×3 (05:07→17:01)
[2020-05-02] MEDS: Piperacillin/Tazobactam 3.375 GM in Sodium Chloride 0.9% 100 ML IVPB SCH ×3 (05:08→17:00)
--- NOTE | 2020-05-02 07:25 | PDOC.FM ---
- Subjective Subjective: No acute events over night. Nursing is concerned that her breathing has become more labored over night. Yesterday, pt was moved to DNR status following palliative consult and conversation with family. - Objective Vital Signs & Weight: Vital Signs (12 hours) Temp Pulse Ox 05/02/20 03:00 97.4 F L 05/01/20 23:00 97.5 F L 05/01/20 20:00 91 L Weight Admit Weight 49.895 kg Weight 50 kg Most Recent Monitor Data Heart Rate from ECG 108 NIBP 116/81 NIBP BP-Mean 92 Respiration from ECG 23 SpO2 91 I&O: 05/01/20 05/02/20 05/03/20 06:59 06:59 06:59 Intake Total 3720 4161 Output Total 3080 1506 Balance 640 2655 Result Diagrams: 05/02/20 03:45 05/02/20 03:45 Phys Exam - Physical Examination Does not respons to questioning. Taking shallow breaths HEENT: PERRLA, moist MMs Neck: no JVD Course breath sounds throughout Cardiovascular: RRR, no significant murmur Gastrointestinal: soft, no distention G tube is leaking, does not appear to be infected Musculoskeletal: no edema Does not withdraw from pain. PERRLA Skin: no rash, normal turgor Dx/Plan (1) Hypernatremia Code(s): E87.0 - HYPEROSMOLALITY AND HYPERNATREMIA Status: Acute (2) Decubitus ulcer Code(s): L89.90 - PRESSURE ULCER OF UNSPECIFIED SITE, UNSPECIFIED STAGE Status : Acute (3) Diabetes mellitus Code(s): E11.9 - TYPE 2 DIABETES MELLITUS WITHOUT COMPLICATIONS Status: Acute (4) HTN (hypertension) Code(s): I10 - ESSENTIAL (PRIMARY) HYPERTENSION Status: Acute (5) Hypothyroidism Code(s): E03.9 - HYPOTHYROIDISM, UNSPECIFIED Status: Acute (6) Increased ammonia level Code(s): R79.89 - OTHER SPECIFIED ABNORMAL FINDINGS OF BLOOD CHEMISTRY Status : Acute (7) Metabolic encephalopathy Code(s): G93.41 - METABOLIC ENCEPHALOPATHY Status: Acute (8) Normocytic anemia Code(s): D64.9 - ANEMIA, UNSPECIFIED Status: Acute (9) Peripheral vascular disease Code(s): I73.9 - PERIPHERAL VASCULAR DISEASE, UNSPECIFIED Status: Acute (10) Protein-calorie malnutrition, severe Code(s): E43 - UNSPECIFIED SEVERE PROTEIN-CALORIE MALNUTRITION Status: Acute (11) Sepsis Code(s): A41.9 - SEPSIS, UNSPECIFIED ORGANISM Status: Acute - Plan Plan: 1. Acute Metabolic Encephalopathy 2/2 Sepsis -Unimproved. Likely 2/2 infectious process from decubitus ulcers vs. hospital delirum vs. elevated ammonia -Cultures growing staph and gram neg rods -ammonia is likely contributing, will continue lactulose today as she only got 1 dose yesterday and did not produce a BM 2. Acute hypoxic respiratory failure - worsening O2 demand. Will decrease fluids, however will need some free water due to hypernatremia. Cannot tolerate diuresis at this time. 3. LLL PNA - WBC worsening on broad spectrum abx - Severe sepsis 2/2 UTI vs. decubitus ulcers vs. candidemia - Requiring levophed, however BP is stable 4. Sacral ulcer - likely source of sepsis, would expect underlying osteo - continue abx --BCx: (1/2) Yeast, started diflucan, pending finalization -L Hip Wound Cx: Staph aureus & pseudomonas- continue vanc & zosyn 5. UTI - UCx: E.coli, continue zosyn, pending sensitivities 7. Hypokalemia, resovled 8. Hypernatremia - change IVF to D5W. Free water deficit is 2L - recheck BMP in 12 hours 9. Hyperammonemia - continue lactulose 10. Tachycardia -stable 11. Prolonged QTc ~600ms on EKG Avoid QTc prolonging agents 12. Severe Protein Calorie Malnutrition with PEG placement Placed at hospitalization at [facility] due to poor PO intake Spanish Language Lecturer consulted-resume PEG tube feeds 13. Multiple Decubitus Ulcers See above 14. Normocytic Anemia Hb stable, monitor 15. 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 Hx of Hypothyroidism TSH wnl at outside facility Resume home synthroid 17. HTN hold home antihypertensives with hypotension 18. DM2 Improved 140-150s. Stable. ACHS. A1c 4.3% DVT PPx: Lovenox Code status: Full after discussed with daughter GI PPx: Protonix Shanthi Ordriguez (daughter) [phone] Silverio Vazquez (boyfriend) [phone] PCP: Dr. Alice Jaeger at [facility] S& Addendum - Attending - Attending Attestation Date/Time: 05/02/20 1046 I personally evaluated the patient and discussed the management with Dr. Rodarte. I agree with the History, Examination, Assessment and Plan documented above with any addition or exceptions noted below. Patient actively dying. Labs worsening. Will attempt to correct with fluids but likely futile. Sister at bedside and updated on condition. States son wants phone call. Will f/u later this morning. Patient still on pressors per family request. Suspect she will pass later today or tomorrow.
[2020-05-02] MEDS ORDERED: Dextrose 5% in Water 1,000 ML IV SCH (07:30)
[2020-05-02] MEDS: Dextrose 5% in Water 1,000 ML IV SCH (07:33)
[2020-05-02] MEDS ORDERED: Potassium Chloride 20 MEQ TAB PO SCH (08:00)
[2020-05-02] MEDS ORDERED: Fluconazole In NaCl,Iso-Osm 400 MG in Premix Bag 1 BAG IVPB SCH (09:00)
[2020-05-02] MEDS: Ascorbic Acid 500 mg Chewable Tablet PER TUBE SCH (09:39)
[2020-05-02] MEDS: Aspirin Chewable 81 MG TAB PO SCH (09:39)
[2020-05-02] MEDS: Enoxaparin Sodium 40 MG/0.4 ML SYRINGE SC SCH (09:40)
[2020-05-02] MEDS: Pantoprazole 40 MG VIAL IVP SCH (10:08)
--- NOTE | 2020-05-02 10:39 | PRG ---
DATE OF SERVICE: 05/02/2020 SUBJECTIVE: A 49-year-old female this morning has slightly agonal respiration, though her sats are 98%. OBJECTIVE: VITAL SIGNS: Blood pressure is still low at 90/60 on Levophed, pulse 100, and respiratory rate 20. CHEST: Rhonchi. CARDIAC: Normal S1, S2. No gallops. ABDOMEN: No masses. LABORATORY DATA: Sodium is 151. White count 14,000, H and H 7 and 24, platelet count is normal. ASSESSMENT: Sepsis syndrome. Extensive decubitus ulcer. Shock. Family has made a DNR. This is the best option. She is severely cachectic, is severely malnourished, extensive ulceration. Comfort care. Family at the bedside. There are no additional questions at this time. Job ID: [id number]
[2020-05-02] MEDS: Vancomycin HCl 750 MG in Sodium Chloride 0.9% 250 ML 250 ML IVPB SCH (11:01)
[2020-05-02 19:43] LABS: Anion Gap 30 mmol/L (10-20); BUN (Urea Nitrogen) 11 mg/dL (7.0-18.7); Calc. Creatinine Clearance 54 mL/min (70-130); Calcium 6.4 mg/dL (7.8-10.44); Carbon Dioxide 14 mmol/L (22-29); Chloride 108 mmol/L (98-107); Estimated GFR-MDRD 72; Glucose 190 mg/dL (70-105); Potassium 3.3 mmol/L (3.5-5.1); Sodium 149 mmol/L (136-145)
[2020-05-03] MEDS: Dextrose 5% in Water 1,000 ML IV SCH
[2020-05-03] MEDS: Hydrocortisone Sod Succ/PF 100 mg/2 ml Vial IVP SCH ×2 (00:55→05:18)
[2020-05-03] MEDS: Piperacillin/Tazobactam 3.375 GM in Sodium Chloride 0.9% 100 ML IVPB SCH ×2 (00:55→05:18)
[2020-05-03] MEDS: HumaLOG 300 UNITS/3 ML VIAL SC PRN ×2 (01:14→04:11)
[2020-05-03] MEDS: Clindamycin/D5W 600 MG in Premix Bag 1 BAG IVPB SCH (01:59)
[2020-05-03 04:17] VITALS: TEMP 98.2
[2020-05-03 05:06] LABS: Anion Gap 27 mmol/L (10-20); BUN (Urea Nitrogen) 13 mg/dL (7.0-18.7); Calc. Creatinine Clearance 53 mL/min (70-130); Calcium 6.2 mg/dL (7.8-10.44); Carbon Dioxide 18 mmol/L (22-29); Chloride 106 mmol/L (98-107); Estimated GFR-MDRD 70; Glucose 243 mg/dL (70-105); Sodium 148 mmol/L (136-145)
[2020-05-03 05:12] LABS: Potassium 2.6 mmol/L (3.5-5.1)
[2020-05-03 05:32] LABS: Band 14 % (5-11); Hemoglobin 7.5 g/dL (12.0-16.0); Lymphocytes 6 % (21-51); MDiff Complete? YES; Mean Corpuscular HGB CONC 33.1 g/dL (32.0-36.0); Mean Corpuscular Hemoglobin 29.6 pg (27.0-31.0); Mean Corpuscular Volume 89.6 fL (78.0-98.0); Mean Platelet Volume 7.4 fL (7.4-10.4); Monocytes 2 % (0-10); Myelocyte 2 % (0-0); Neutrophil 76 % (42-75); Nucleated RBC 7 % (0); Platelet Count 191 thou/uL (130-400); Platelet Morphology Comment Appears Adequate; Polychromasia SLIGHT = 2-3 cells (100X) (0-2/hpf); RBC Distribution Width 15.8 % (11.5-14.5); Red Blood Cell (RBC) Count 2.53 mill/uL (4.20-5.40); White Blood Cell (WBC) Count 38.7 thou/uL (4.8-10.8)
[2020-05-03] MEDS ORDERED: Potassium Chloride 40 MEQ in Premix Bag 1 BAG IVPB SCH (06:15)
[2020-05-03] MEDS: Levothyroxine Sodium 75 MCG TAB PO SCH (06:18)
--- NOTE | 2020-05-04 03:12 | DIS ---
DATE OF ADMISSION: 04/29/2020 DATE OF DISCHARGE: 05/03/2020 DATE OF : 05/03/2020. Time of was 06:59. CAUSE OF : Septic shock. SECONDARY DIAGNOSES: 1. Peripheral vascular disease. 2. Metabolic encephalopathy. 3. Left lower lobe pneumonia. 4. Infected sacral decubitus ulcer. 5. Severe protein calorie malnutrition. 6. Hypertension. 7. Hypothyroidism. 8. Type 2 diabetes. 9. Coronary artery disease. HOSPITAL COURSE: This is a 49-year-old female who initially presents to the emergency room with concerns of altered mental status and possible PEG tube malfunction. At the time of admission, she had been altered for approximately 3 days. She was determined to be septic at the time of admission with sources possibly being pneumonia, UTI, osteomyelitis, or bacteremia. She was started on broad spectrum antibiotics and was fluid resuscitated with a 30 mL per kg bolus. She quickly needed IV vasopressors to help maintain her blood pressure. Even at maximum dosing of Levophed, her blood pressure remained low. Throughout the duration of the hospitalization, there was a significant concern from the social aspect relative to the patient's code status. Palliative Care was brought in to discuss with family to help determine power of commercial litigation attorney. After significant amount of conversation between power of commercial litigation attorney and patient's common-law hand children, the patient was determined to be a DNR. It is also determined that the patient should not continue to add additional pressors. For the last 48 hours, the patient was generally unresponsive with low blood pressures on maximal dosing of Levophed. From the morning of 05/03, the patient was found to be in asystole by nursing. The physician was called at bedside and the patient was pronounced . Job ID: [id number] [facility]
== END 2020-05-03 06:59 | disposition expired | DRG 871 ==
LOC: ERS 05:58 → CCU 06:37
PROVIDERS: ADMIT Family Medicine; ATTEND Family Medicine
PROC: 3E033XZ Introduction of Vasopressor into Peripheral Vein, Percutaneous Approach (ICD-10-PCS; principal; 2020-04-29)
PROC: 30233N1 Transfusion of Nonautologous Red Blood Cells into Peripheral Vein, Percutaneous Approach (ICD-10-PCS; 2020-04-29)
DX: A41.51 Sepsis due to Escherichia coli [E. coli] (principal); L89.154 Pressure ulcer of sacral region, stage 4; L89.893 Pressure ulcer of other site, stage 3; G93.41 Metabolic encephalopathy; Z66 Do not resuscitate; Z51.5 Encounter for palliative care; Z20.828 Contact with and (suspected) exposure to other viral communicable diseases; L89.213 Pressure ulcer of right hip, stage 3; J18.9 Pneumonia, unspecified organism; E43 Unspecified severe protein-calorie malnutrition; J96.01 Acute respiratory failure with hypoxia; R65.21 Severe sepsis with septic shock; N39.0 Urinary tract infection, site not specified; K94.23 Gastrostomy malfunction; N17.9 Acute kidney failure, unspecified; R64 Cachexia; E72.20 Disorder of urea cycle metabolism, unspecified; E27.40 Unspecified adrenocortical insufficiency; E87.0 Hyperosmolality and hypernatremia; M46.28 Osteomyelitis of vertebra, sacral and sacrococcygeal region; E11.52 Type 2 diabetes mellitus with diabetic peripheral angiopathy with gangrene; I96 Gangrene, not elsewhere classified; I10 Essential (primary) hypertension; E03.9 Hypothyroidism, unspecified; I25.10 Atherosclerotic heart disease of native coronary artery without angina pectoris; Y83.3 Surgical operation with formation of external stoma as the cause of abnormal reaction of the patient, or of later complication, without mention of misadventure at the time of the procedure; M10.9 Gout, unspecified; M19.90 Unspecified osteoarthritis, unspecified site; L89.222 Pressure ulcer of left hip, stage 2; E11.649 Type 2 diabetes mellitus with hypoglycemia without coma; D64.9 Anemia, unspecified; E11.69 Type 2 diabetes mellitus with other specified complication; E87.6 Hypokalemia; E86.0 Dehydration; I45.81 Long QT syndrome; Z68.22 Body mass index [BMI] 22.0-22.9, adult; Z89.512 Acquired absence of left leg below knee; Z89.511 Acquired absence of right leg below knee; Z88.0 Allergy status to penicillin; Z79.899 Other long term (current) drug therapy; Z79.890 Hormone replacement therapy; Z79.02 Long term (current) use of antithrombotics/antiplatelets
CPT/HCPCS: 36415; 36416; 36430; 71045; 76705; 80048; 80202; 80306; 82140; 82533; 82607; 82728; 82747; 82805; 82977; 83036; 83540; 83550; 83605; 83735; 84100; 84134; 84145; 85014; 85025; 85652; 86140; 86705; 86706; 86780; 86803; 86850; 86900; 86901; 87070; 87077; 87186; 87205; 87340; 87635; 93005; 93010; 96360; 96361; 96374; 96376; C9113; J1450; J1650; J1720; J1885; J2543; J2765; J3370; J3475; J3480; J3490; J7050; P9016; P9045; P9047; U0003